=== PATIENT | male | born 1960 | race Caucasian/White ===

== ENCOUNTER 2022-07-19 08:34 | Outpatient (CLI) | payer BC, SELFPAY ==
[2022-07-19 13:31] LABS: Basophils Absolute Auto 0.06 K/uL (0.00-0.30); Basophils Percent Auto 0.9 % (0.0-3.0); Eosinophils Absolute Auto 0.14 K/uL (0.00-0.50); Hematocrit 46.3 % (37.0-53.0); Immature Granulocytes Abs Auto 0.01 K/uL (0.00-0.30); Immature Granulocytes Pct Auto 0.1 %; Lymphocytes Absolute Auto 1.86 K/uL (0.90-2.90); Lymphocytes Percent Auto 27.2 % (20-44); Mean Corpuscular HGB Conc 35 gm/dL (32-36); Mean Corpuscular Hemoglobin 31 pg (26-34); Mean Corpuscular Volume 90 fL (80-100); Monocytes Percent Auto 10.1 % (0.0-11.0); Neutrophils Absolute Auto 4.09 K/uL (1.7-7.0); Neutrophils Percent Auto 59.7 % (42.0-72.0); Platelet Count* 240 K/uL (140-440); Red Blood Count 5.17 m/uL (4.30-5.90); White Blood Count* 6.85 K/uL (4.50-11.00)
[2022-07-19 13:32] LABS: Slide Review Reflex No
[2022-07-19 13:48] LABS: Chloride* 109 mmol/L (96-114); Sodium* 137 mmol/L (135-149)
[2022-07-19 13:49] LABS: Potassium* 4.6 mmol/L (3.6-5.1)
[2022-07-19 13:51] LABS: Bilirubin Total* 0.8 mg/dL (0.1-1.5); Carbon Dioxide* 22 mmol/L (20-32); Creatinine* 0.8 mg/dL (0.5-1.5); Estimated Glomerular Filt Rate 100 ml/min
[2022-07-19 13:52] LABS: Alanine Aminotransferase* 27 U/L (4-50); Alkaline Phosphatase* 71 U/L (40-150); Aspartate Amino Transferase* 34 U/L (12-35); Blood Urea Nitrogen* 9 mg/dL (7-30); Calcium* 9.1 mg/dL (8.4-10.6); Glucose* 123 mg/dL (60-115); Total Protein* 6.5 g/dL (6.0-8.3)
[2022-07-19 13:56] LABS: C Reactive Protein* < 0.5 mg/dL (0.5-1.0)
== END 2022-07-19 08:35 | disposition home or self-care (01) ==
PROVIDERS: PCP Family Medicine; Visit Provider Family Medicine
DX: R10.9 Unspecified abdominal pain (principal); G89.29 Other chronic pain; R19.7 Diarrhea, unspecified; F41.9 Anxiety disorder, unspecified
CPT/HCPCS: 80053; 85025; 86140

== ENCOUNTER 2022-07-22 12:17 | Outpatient (CLI) | payer BC, SELFPAY ==
--- NOTE | 2022-07-22 13:00 | CRLHL7_ITS ---
For Patients: As a result of the Century Cures Act, medical imaging exams and procedure reports are released immediately into your electronic medical record. You may view this report before your referring provider. If you have questions, please contact your health care provider. Indication: CHRONIC ABDOMEN PAIN Technique: Postcontrast CT abdomen and pelvis. Oral water. 53 cc Isovue 370 intravenous contrast. Please note that all CT scans at this facility use dose modulation, iterative reconstruction, and/or weight-based dosing when appropriate to reduce radiation dose to as low as reasonably achievable. Comparison: 07/17/2019, 07/19/2015 Findings: Severe emphysematous changes in both lung bases again noted with bilateral areas of scarring. No pleural effusion. There is no intrahepatic mass. Hepatic steatosis is present. The spleen is normal without splenomegaly or intrasplenic lesion. Normal adrenal glands. Kidneys are within normal limits. No hydronephrosis. Atherosclerotic disease is present. No aortic aneurysm. Normal pancreas. The gallbladder is normal. No adenopathy is present. Prostate calcifications are noted. The bladder is normal. No fracture. Degenerative disc disease L1-2 and L2-3. Similar appearance of the bowel. No mechanical obstruction or acute inflammatory change. Chronic sigmoid wall thickening noted. Impression: Similar appearance of the bowel loops with mild gaseous and fluid distention suggesting chronic ileus, possibly related to chronic sigmoid diverticulosis. No free air or free fluid. No abscess. Hepatic steatosis. Severe emphysema. Please note that all CT scans at this facility use dose modulation, iterative reconstruction, and/or weight-based dosing when appropriate to reduce radiation dose to as low as reasonably achievable. Dictated by Adam Reese MD @ 07/23/2022 8:13:56 AM (Electronically Signed)
== END 2022-07-22 12:18 | disposition home or self-care (01) ==
LOC: CT 12:19
PROVIDERS: PCP Family Medicine; Visit Provider Family Medicine
DX: R10.9 Unspecified abdominal pain (principal); K76.0 Fatty (change of) liver, not elsewhere classified; J43.8 Other emphysema
CPT/HCPCS: 74177; Q9967

== ENCOUNTER 2022-08-16 08:30 | Outpatient (CLI) | payer BC, SELFPAY ==
--- NOTE | 2022-08-16 08:46 | W.ANESCHARGE ---
Anesthesia Charges Start Date/Time Anesthesia Start Date: 08/16/22 Anesthesia Start Time: 09:15 Stop Date/Time Anesthesia Stop Date: 08/16/22 Anesthesia Stop Time: 10:00
--- NOTE | 2022-08-16 13:45 | W.ANESCHARGE ---
Anesthesia Charges Start Date/Time Anesthesia Start Date: 08/16/22 Anesthesia Start Time: 09:15 Stop Date/Time Anesthesia Stop Date: 08/16/22 Anesthesia Stop Time: 10:00
== END 2022-08-16 08:31 | disposition home or self-care (01) ==
LOC: OP CLINIC 08:30
PROVIDERS: PCP Family Medicine; Visit Provider Internal Medicine
DX: Z12.11 Encounter for screening for malignant neoplasm of colon (principal); K63.5 Polyp of colon
CPT/HCPCS: 00811; 45380; 45385; 88305; J2704

== ENCOUNTER 2023-04-19 09:10 | Outpatient (CLI) | payer BC, SELFPAY ==
--- NOTE | 2023-04-19 10:00 | CRLHL7_ITS ---
For Patients: As a result of the Century Cures Act, medical imaging exams and procedure reports are released immediately into your electronic medical record. You may view this report before your referring provider. If you have questions, please contact your health care provider. INDICATION: COPD TECHNIQUE: CT chest, abdomen and pelvis acquired with IV contrast. COMPARISON: 07/17/2019 FINDINGS: CHEST: Cardiovascular structures: Heart size is normal. Thoracic aorta and main pulmonary artery are normal in caliber. Mediastinum and rach: No mass or adenopathy. Lungs and pleura: Compared to the previous exam, stable centrilobular emphysema. Postoperative changes of right upper lobectomy. There are new infiltrates in the left lower lung concerning for pneumonitis. Previously noted small subpleural nodule on the right is not definitely identified on the current exam. Chest wall and axilla: No mass or adenopathy. Bones: No suspicious bone lesions. Unremarkable for age. ABDOMEN AND PELVIS: Liver: No abnormal mass. Stable small wedge-shaped geographic area of low-attenuation involving the left hepatic lobe anteriorly (series 7 image 23) which may represent patchy steatosis. Gallbladder and bile ducts: Unremarkable. Pancreas: No mass or inflammation. Stable slight dilatation of the main pancreatic duct. Spleen: Unremarkable. Adrenal glands: Unremarkable. Kidneys: No hydronephrosis. No renal mass. No ureteral dilatation. GI tract: No obstruction. Colonic diverticulosis without diverticulitis. Multiple loops of normal caliber small bowel colon filled with gas and fluid. Diverticulosis without diverticulitis. Vascular structures: Scattered vascular calcifications. Lymph nodes: No enlarged lymph nodes Miscellaneous: Unremarkable. No free air or significant free fluid. Pelvic Organs: Prostatic calcifications. Bones: No osseous lesions. Degenerative changes in the lumbar spine. IMPRESSION: 1. New infiltrates within the left lower lung concerning for pneumonitis 2. Stable emphysematous changes in both lungs. 3. No adenopathy. Please note that all CT scans at this facility use dose modulation, iterative reconstruction, and/or weight-based dosing when appropriate to reduce radiation dose to as low as reasonably achievable. Dictated by Sergio Nelson MD @ 04/20/2023 4:40:15 PM (Electronically Signed)
== END 2023-04-19 09:11 | disposition home or self-care (01) ==
PROVIDERS: PCP Family Medicine; Visit Provider Family Medicine
DX: J44.9 Chronic obstructive pulmonary disease, unspecified (principal); R10.9 Unspecified abdominal pain
CPT/HCPCS: 71260; 74177; Q9967

== ENCOUNTER 2023-07-06 15:40 | Inpatient (IN) | payer BC, SELFPAY ==
[2023-07-06 15:46] VITALS: BP 96/62; PULSE 109; RESP 18; TEMP 36.7; O2SAT 95
--- NOTE | 2023-07-06 15:59 | ED.SOB ---
HPI - SOB/Dyspnea General Time Seen by Provider: 15:59 Date Seen: 07/06/23 Chief Complaint: Shortness of Breath/Dyspnea Stated Complaint: shortness of breath, congestion, cough Time Seen by Provider: 07/06/23 15:58 Source: patient, RN notes reviewed and old records reviewed Mode of arrival: ambulatory Limitations: no limitations History of Present Illness HPI Narrative: 62-year-old male who presents with shortness of breath. History of COPD and known lung mass. Patient has had breathing difficulty for ?a while? but worse in the last couple of days. Cough productive of clear sputum, no chest pain, no orthopnea, no lower extremity swelling. Denies fever chills. No runny nose or sore throat. Related Data Home Medications Medication Instructions Recorded Confirmed escitalopram oxalate 20 mg tablet 20 mg PO DAILY 03/15/23 07/06/23 albuterol sulfate 2.5 mg/3 mL 2.5 mg continuous nebulization Q6H 04/07/23 07/06/23 (0.083 %) solution for nebulization PRN nebulizer and compressor #1 ea 04/07/23 07/06/23 (InnoSpire Essence device) fluticasone 500 mcg-salmeterol 50 1 ea inhalation BID 06/27/23 07/06/23 mcg/dose blistr powdr for inhalation (Advair Diskus) Previous Rx's Medication Instructions Recorded albuterol sulfate 90 mcg/actuation 2 puff inhalation Q6H PRN 12/12/22 aerosol inhaler shortness of breath or wheezing #8.5 grams fluticasone propionate 50 2 spray intranasal QDAY #16 grams 03/15/23 mcg/actuation nasal spray,suspension (Flonase Allergy Relief) lorazepam 1 mg tablet (Ativan) 1 mg PO BID PRN anxiety #60 tabs 04/10/23 budesonide 0.5 mg/2 mL suspension 0.5 mg (2 mL) inhalation BID #120 06/06/23 for nebulization (Pulmicort) mL ipratropium 0.5 mg-albuterol 3 mg 3 ml inhalation TID #270 mL 06/06/23 (2.5 mg base)/3 mL nebulization soln omeprazole 20 mg capsule,delayed 20 mg PO QDAY #30 caps 06/06/23 release prednisone 10 mg tablet 10 mg PO QDAY #30 tabs 06/23/23 fluconazole 100 mg tablet 100 mg PO QDAY #14 tabs 06/28/23 nystatin 100,000 unit/mL oral 5 ml PO TID #473 mL 06/28/23 suspension Allergies Allergy/AdvReac Type Severity Reaction Status Date / Time No Known Drug Allergies Allergy Verified 07/06/23 17:35 [facility] Medical History (Updated 07/06/23 @ 19:44 by Griffin Lewis MD) LLL pneumonia ?J18.9 - Pneumonia, unspecified organism (ICD-10) Allergic rhinitis ?J30.9 - Allergic rhinitis, unspecified (ICD-10) Chronic constipation ?K59.09 - Other constipation (ICD-10) Tubular adenoma of colon (02/28/15) ?D12.6 - Benign neoplasm of colon, unspecified (ICD-10) Tobacco abuse ?Z72.0 - Tobacco use (ICD-10) Spondylosis of lumbar spine ?M47.816 - Spondylosis without myelopathy or radiculopathy, lumbar region (ICD-10) Recurrent major depressive disorder ?F33.9 - Major depressive disorder, recurrent, unspecified (ICD-10) History of substance abuse ?F19.11 - Other psychoactive substance abuse, in remission (ICD-10) Generalized anxiety disorder ?F41.1 - Generalized anxiety disorder (ICD-10) Gastroesophageal reflux disease ?K21.9 - Gastro-esophageal reflux disease without esophagitis (ICD-10) Chronic pain of both knees ?M25.561 - Pain in right knee (ICD-10) ?M25.562 - Pain in left knee (ICD-10) ?G89.29 - Other chronic pain (ICD-10) Chronic abdominal pain ?R10.9 - Unspecified abdominal pain (ICD-10) ?G89.29 - Other chronic pain (ICD-10) Cannabis abuse (06/06/16) ?F12.10 - Cannabis abuse, uncomplicated (ICD-10) COPD (chronic obstructive pulmonary disease) ?J44.9 - Chronic obstructive pulmonary disease, unspecified (ICD-10) Surgical History (Updated 07/14/22 @ 12:41 by Jocy Chong ~ [facility]) 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) ?Z90.2 - Acquired absence of lung [part of] (ICD-10) History of hand surgery ?Z98.890 - Other specified postprocedural states (ICD-10) Social History (Updated 06/06/23 @ 11:13 by Cynthia Rodgers ~ [facility]) Narrative: Alcohol abuse , 3 kids [employer], smoker What is your current living situation?: I have a place to live at present, but am concerned about future Problems where you live: carbon monoxide detectors missing or not working In the past 12 months, utilities in danger of being shut off: unable to answer In past 12 months, lack of transportation kept you from medical appts, meetings, work, or getting things needed for daily living: no In the past 12 mos, have been you worried that your food would run out before you had money to buy more?: often true In the past 12 mos, the food you bought just didn't last and you didn't have money to buy more?: sometimes true Smoking Status: Current every day smoker What tobacco products do you use: cigarettes Non-prescribed substance use: denies use How often does anyone, including family, friends and others, physically hurt you: never How often does anyone, including family, friends and others, insult or talk down to you: rarely How often does anyone, including family, friends and others, threaten you with harm: never How often does anyone, including family, friends and others, scream or curse at you: never Little interest or pleasure in doing things: nearly every day Feeling down, depressed, or hopeless: nearly every day Exam Narrative: Exam Narrative: General: Well-developed and well-nourished, mild respiratory distress Head: Atraumatic and normocephalic Eyes: Pupils are equal reactive, extraocular motions intact, conjunctiva clear ENT: External nose and ears are normal, posterior pharynx without erythema or exudate Neck: No midline cervical tenderness, full spontaneous range of motion the neck, trachea midline, no adenopathy Heart: Tachycardic rate and regular rhythm no murmurs or thrills Lungs: Coarse wheezes bilaterally with transmitted upper airway sound Abdomen: Soft, nontender, nondistended with active bowel sounds Musculoskeletal: No tenderness, deformity, or edema Neurologic: Awake, alert, and oriented x3, no gross focal neurologic deficits, cranial nerves intact as tested Psych: Mood and affect are appropriate Skin: No rashes Const: Vital Signs, click to edit/add: Vital Signs - 24 hr 07/06/23 15:46 Temperature 98.0 F Pulse Rate [Right Pulse Oximeter] 109 H Respiratory Rate 18 Blood Pressure [Ri ght Upper Arm] 96/62 Pulse Oximetry 95 Oxygen Delivery Me thod Room Air Course Course ED Course: Patient seen and examined, prior records reviewed. Patient presents today with shortness of breath. History of COPD in no lung mask, tachycardic with audible wheezes and stridor on exam. Voice is not hoarse although patient says he has noted some voice changes. With long history of smoking, concern for upper airway mass, known lung mass. Pulmonary embolism also possible but would obviously not cause upper airway sounds. Albuterol nebulizer treatment as well as stored order. If fiberoptic scope is available will attempt nasolaryngoscopy to visualize vocal cords. CT scan of the neck and chest ordered. Patient continues to smoke cigarettes, history of COPD, concern with medication noncompliance. Reevaluation(s) Time of Reevaluation #1: 17:11 Reevaluation #1: Labs independently interpreted by me with normal CBC, normal basic metabolic panel other than slightly low bicarbonate, venous blood gas slightly elevated with low pCO2 consistent with hyperventilation related to patient's increased respiratory rate, magnesium normal, BNP normal. CT pending. [facility] does not have a fiberoptic laryngoscopy equipment for use, will wait for CT results. Time of Reevaluation #2: 17:44 Reevaluation #2: CT of the chest independently interpreted by me demonstrates marked emphysematous changes and elevated right hemidiaphragm, no pulmonary embolism, left lower lobe mass is almost completely consolidated, this may represent postobstructive atelectasis and consolidation from previously seen lung mass. 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 Time of Reevaluation #3: 18:21 Reevaluation #3: Care discussed with Dr. Vazquez, feels the patient will need to be seen to have this mass biopsy but most likely needs to be at [place] or another tertiary center. At this time based on CT scan and clinical exam, there is no acute or impending airway obstruction and this patient is COVID positive, biopsy may need to wait until he has recovered. Does recommend that if patient is admitted, he can undergo laryngoscopy tomorrow at [facility]. Additional Reevaluation(s): 7:01 p.m. updated patient with findings and plan. Patient would like to go home if possible. Patient with mild tachycardia which is been seen and prior clinic visits, blood pressure is approximately stable for the patient. Oxygen saturation greater than 95% throughout his emergency department visit after DuoNeb appears more comfortable. CT scan of the chest still is not been read, did contact [facility] and there be significant delay in reads, updated patient with delay. 7:29 p.m. care discussed with Dr. Mccord in the emergency department for admission. 7:[address] report from Radiology which does confirm left hilar mass with a bronchial obstruction and atelectasis and consolidation of the left lower lobe. Vital Signs Vital signs: Initial Vital Signs Temperature 98.0 F 07/06/23 15:46 Temperature Source Temporal Artery Scan 07/06/23 15:46 Pulse Rate 109 H 07/06/23 15:46 Respiratory Rate 18 07/06/23 15:46 Blood Pressure 96/62 07/06/23 15:46 Blood Pressure Mean 73 07/06/23 15:46 Blood Pressure Position Sitting 07/06/23 15:46 Pulse Oximetry 95 07/06/23 15:46 Oxygen Delivery Method Room Air 07/06/23 15:46 Vital Signs Temperature 98.0 F 07/06/23 15:46 Pulse Rate 109 H 07/06/23 15:46 Respiratory Rate 18 07/06/23 15:46 Blood Pressure 96/62 07/06/23 15:46 Pulse Oximetry 95 07/06/23 15:46 Oxygen Delivery Method Room Air 07/06/23 15:46 Temperature 98.0 F 07/06/23 15:46 Pulse Rate 109 H 07/06/23 15:46 Respiratory Rate 18 07/06/23 15:46 Blood Pressure 96/62 07/06/23 15:46 Pulse Oximetry 95 07/06/23 15:46 Oxygen Delivery Method Room Air 07/06/23 15:46 Medications Administered Medications: Generic Name Dose Route Start Last Admin Trade Name Freq PRN Reason Stop Dose Admin Nicotine 1 patch 07/06/23 19:30 07/06/23 19:43 Nicotine 21 Mg Patch TRANSDERMA 1 patch Q24H ALEJANDRO Administration Discontinued Medications Generic Name Dose Route Start Last Admin Trade Name Freq PRN Reason Stop Dose Admin Albuterol/Ipratropium 1 neb 07/06/23 17:53 07/06/23 18:08 Iprat-Albut 0.5-2.5 Mg/3 Ml Neb IH 07/06/23 17:54 1 neb ONCE ONE Administration Dexamethasone 10 mg 07/06/23 16:14 07/06/23 17:12 Dexamethasone 10 Mg/Ml Inj IVP 07/06/23 16:15 10 mg ONCE ONE Administration Sodium Chloride 1,000 mls @ 1,000 mls/hr 07/06/23 16:30 07/06/23 18:08 0.9 % Sodium Chloride 1000 Ml IV 07/06/23 17:29 Infused .Q1H ALEJANDRO Infusion MDM - SOB/Dyspnea Lab Data Labs: Lab Results 07/06/23 Range/Units 16:29 WBC 9.66 (4.50-11.00) K/uL RBC 4.70 (4.30-5.90) m/uL Hgb 14.2 (13.5-17.5) gm/dL Hct 42.2 (37.0-53.0) % MCV 90 (80-100) fL MCH 30 (26-34) pg MCHC 34 (32-36) gm/dL RDW Coeff of Dylan 13.6 (11.5-15.5) % Plt Count 421 (140-440) K/uL Neut % (Auto) 73.3 H (42.0-72.0) % Lymph % (Auto) 16.6 L (20-44) % Marinette % (Auto) 7.8 (0.0-11.0) % Eos % (Auto) 1.0 (0.0-7.0) % Baso % (Auto) 0.4 (0.0-3.0) % Neut # (Auto) 7.10 H (1.7-7.0) K/uL Lymph # (Auto) 1.60 (0.90-2.90) K/uL Marinette # (Auto) 0.80 (0.00-0.90) K/UL Eos # (Auto) 0.10 (0.00-0.50) K/uL Baso # (Auto) 0.04 (0.00-0.30) K/uL Abs Immat Gran (auto) 0.09 (0.00-0.30) K/uL Imm/Tot Granulo (auto) 0.9 % VBG pH 7.432 H (7.32-7.43) VBG pCO2 31 L (40-50) mmHG VBG pO2 56.9 H (25-47) mmHG VBG HCO3 21 (21-28) mmol/L Sodium 137 (135-149) mmol/L Potassium 4.5 (3.6-5.1) mmol/L Chloride 108 (96-114) mmol/L Carbon Dioxide 18 L (20-32) mmol/L Anion Gap 11 (7-15) mEq/L BUN 13 (7-30) mg/dL Creatinine 0.6 (0.5-1.5) mg/dL Estimated GFR 108 ml/min Glucose 96 (60-115) mg/dL Calcium 8.6 (8.4-10.6) mg/dL Magnesium 2.0 (1.5-2.6) mg/dL NT-Pro-B Natriuret Pep 38 pg/mL SARS-CoV-2 (PCR) POSITIVE SARS-CoV-2 A (Negative) Influenza Type A (PCR) Negative PCR FLU A (Negative) Influenza Type B (PCR) Negative PCR FLU B (Negative) RSV (PCR) Negative PCR RSV (Negative) Discharge Plan Discharge Clinical Impression: Tobacco abuse, COPD (chronic obstructive pulmonary disease), COVID-19, Supraglottic mass, Mass of left lung Patient Disposition: Admitted As Observation
--- NOTE | 2023-07-06 16:10 | CRLHL7_ITS ---
For Patients: As a result of the Century Cures Act, medical imaging exams and procedure reports are released immediately into your electronic medical record. You may view this report before your referring provider. If you have questions, please contact your health care provider. INDICATION: Dyspnea. TECHNIQUE: CT of the neck soft tissues performed with IV contrast. Contrast: 95 cc Isovue 370. COMPARISON: None available at this institution. FINDINGS: There is effacement of the right piriform sinus. Suggestion of a submucosal lesion in the right false cord/supraglottic region measuring up to 1.2 x 1.6 cm (TR X AP) (series 3, image 57). The nasopharynx, oropharynx and hypopharynx appear unremarkable. The parotid and submandibular glands appear unremarkable. The thyroid gland is normal. There is a 1.8 cm central hypodense lymph node noted right supraclavicular/level 5. Scattered atherosclerotic disease. The visualized intracranial components appear grossly intact. Visualized orbits and contents appear unremarkable. The paranasal sinuses are clear as visualized. Severe emphysema. IMPRESSION: 1. Suggestion of a submucosal lesion within the right supraglottic larynx/false cord region. Effacement of the right piriform sinus. Direct visualization is recommended. 2. Right supraclavicular/level 5 enlarged lymph node with central hypodensity worrisome for necrosis. This could represent a metastatic lymph node. Tissue sampling recommended if a primary source is not identified. Please note that all CT scans at this facility use dose modulation, iterative reconstruction, and/or weight-based dosing when appropriate to reduce radiation dose to as low as reasonably achievable. Dictated by Mick Acuna MD @ 07/06/2023 6:14:10 PM (Electronically Signed)
--- NOTE | 2023-07-06 16:10 | CRLHL7_ITS ---
For Patients: As a result of the Century Cures Act, medical imaging exams and procedure reports are released immediately into your electronic medical record. You may view this report before your referring provider. If you have questions, please contact your health care provider. Indication: Dyspnea, known malignancy, history of right-sided lung symptoms Technique: Volumetric multidetector CT images of the chest were obtained after the administration of IV contrast. 95 cc Isovue 370 low osmolar intravenous contrast Comparison: CT chest abdomen and pelvis April 19, 2023 Findings: The thoracic inlet and thyroid gland are unremarkable. The thoracic aorta is nonaneurysmal. There is no central filling defect to suggest pulmonary embolism. There are enlarged mediastinal and hilar lymph nodes as well as subcarinal lymph nodes similar to previous exam. There is demonstration of marked bronchial thickening and opacification of the left lower lobe subsegmental bronchi. There is mild upper lobe central bronchial thickening. There is moderate to severe centrilobular and paraseptal emphysematous change. There is interval development of left basilar atelectasis and consolidation with likely obstructing endobronchial lesion at the left hilum measuring 3.3 x 2.4 centimeters. There is no evidence of pulmonary mass or suspicious pulmonary nodule. The partially visualized upper abdomen demonstrates moderate stool within the colon. The thoracic vertebral body heights are grossly maintained with straightening of the normal thoracic kyphosis. There is no significant spondylolisthesis or displaced fracture. Impression: Moderate to severe emphysematous changes of the bilateral hemithoraces with demonstration of likely left inferior hilar mass and/or endobronchial obstructing lesion measuring 2.4 x 3.3 centimeters with moderate atelectasis and consolidation in the peripheral left lower lobe. There are enlarged mediastinal and hilar lymph nodes again seen. No evidence of pulmonary embolus. Please note that all CT scans at this facility use dose modulation, iterative reconstruction, and/or weight-based dosing when appropriate to reduce radiation dose to as low as reasonably achievable. Dictated by Laz Morales MD @ 07/06/2023 7:42:54 PM (Electronically Signed)
[2023-07-06 16:36] LABS: HCO3 VBG 21 mmol/L (21-28); PCO2 VBG 31 mmHG (40-50); PO2 VBG 56.9 mmHG (25-47); pH VBG 7.432 (7.32-7.43)
[2023-07-06 16:37] LABS: Basophils Absolute Auto 0.04 K/uL (0.00-0.30); Basophils Percent Auto 0.4 % (0.0-3.0); Hematocrit 42.2 % (37.0-53.0); Hemoglobin* 14.2 gm/dL (13.5-17.5); Immature Granulocytes Abs Auto 0.09 K/uL (0.00-0.30); Immature Granulocytes Pct Auto 0.9 %; Lymphocytes Percent Auto 16.6 % (20-44); Mean Corpuscular HGB Conc 34 gm/dL (32-36); Mean Corpuscular Hemoglobin 30 pg (26-34); Mean Corpuscular Volume 90 fL (80-100); Monocytes Percent Auto 7.8 % (0.0-11.0); Neutrophils Percent Auto 73.3 % (42.0-72.0); Platelet Count* 421 K/uL (140-440); RDW Coefficient of Variation % 13.6 % (11.5-15.5); White Blood Count* 9.66 K/uL (4.50-11.00)
[2023-07-06 16:41] LABS: Slide Review Reflex No
[2023-07-06 16:55] LABS: Chloride* 108 mmol/L (96-114); Potassium* 4.5 mmol/L (3.6-5.1); Sodium* 137 mmol/L (135-149)
[2023-07-06 16:57] LABS: Creatinine* 0.6 mg/dL (0.5-1.5); Estimated Glomerular Filt Rate 108 ml/min
[2023-07-06 16:58] LABS: Anion Gap 11 mEq/L (7-15); Blood Urea Nitrogen* 13 mg/dL (7-30); Calcium* 8.6 mg/dL (8.4-10.6); Carbon Dioxide* 18 mmol/L (20-32); Glucose* 96 mg/dL (60-115)
[2023-07-06 17:08] LABS: NT Pro B Type NatriureticPept* 38 pg/mL
[2023-07-06] MEDS: 0.9 % SODIUM CHLORIDE 1000 ml 1,000 ML IV (17:12)
[2023-07-06] MEDS: dexAMETHasone 10 MG/ML inj IVP (17:12)
[2023-07-06 17:15] LABS: PCR FLU A Negative PCR FLU A (Negative); PCR FLU B Negative PCR FLU B (Negative); PCR RSV Negative PCR RSV (Negative); SARS PCR* POSITIVE SARS-CoV-2 (Negative)
[2023-07-06] MEDS: IPRAT-ALBUT 0.5-2.5 MG/3 ML NEB 1 NEB IH (18:08)
--- NOTE | 2023-07-06 19:40 | P.IMHP_ITS ---
Hospitalist- H&P: HPI History of Present Illness Date Seen: 07/06/23 Chief complaint: shortness of breath, congestion, cough Narrative: Kodak Jenkins is a 62 year old male with known COPD who presented to the ER this evening with acute on chronic dyspnea, in addition to cough. Has noted symptoms for months, worse in the past few days. Cough present intermittently, no sputum or hemoptysis. Known L lung mass, has PET scan scheduled on 07/20/23. ER Course and Findings: - intermittent tachycardia and tachypnea - weakness associated with dyspnea and coughing paroxysms - + COVID - CTA chest: negative PE, moderate to severe emphysematous change, concern for obstructing endobronchial lesion at L hilum - CT soft tissue neck: concern for submucosal lesion in R supraglottic larynx, R supraclavicular lymph node Dr. Vazquez of ENT aware and plans to see patient for direct visualization of supraglottic lesion. Sister Natacha present for H&P, assisted in adding history. Drinks 5-10 beers/day, last ETOH 11:30am 07/06. Daily smoker. Histories updated below. Dr. Curiel is PCP locally. Review of Systems Narrative: - no GI symptoms - no symptoms - no skin concerns - daily smoker, daily ETOH use. No history of severe withdrawal, but worried about this. Nicotine patch placed in ED [facility] Medical History (Updated 07/06/23 @ 20:47 by Ayanna Mccord MD) LLL pneumonia ?J18.9 - Pneumonia, unspecified organism (ICD-10) Allergic rhinitis ?J30.9 - Allergic rhinitis, unspecified (ICD-10) Chronic constipation ?K59.09 - Other constipation (ICD-10) Tubular adenoma of colon (02/28/15) ?D12.6 - Benign neoplasm of colon, unspecified (ICD-10) Tobacco abuse ?Z72.0 - Tobacco use (ICD-10) Spondylosis of lumbar spine ?M47.816 - Spondylosis without myelopathy or radiculopathy, lumbar region (ICD-10) Recurrent major depressive disorder ?F33.9 - Major depressive disorder, recurrent, unspecified (ICD-10) History of substance abuse ?F19.11 - Other psychoactive substance abuse, in remission (ICD-10) Generalized anxiety disorder ?F41.1 - Generalized anxiety disorder (ICD-10) Gastroesophageal reflux disease ?K21.9 - Gastro-esophageal reflux disease without esophagitis (ICD-10) Chronic pain of both knees ?M25.561 - Pain in right knee (ICD-10) ?M25.562 - Pain in left knee (ICD-10) ?G89.29 - Other chronic pain (ICD-10) Chronic abdominal pain ?R10.9 - Unspecified abdominal pain (ICD-10) ?G89.29 - Other chronic pain (ICD-10) Cannabis abuse (06/06/16) ?F12.10 - Cannabis abuse, uncomplicated (ICD-10) COPD (chronic obstructive pulmonary disease) ?J44.9 - Chronic obstructive pulmonary disease, unspecified (ICD-10) Surgical History (Updated 07/14/22 @ 12:41 by Jocy Chong ~ PSR) 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 , 3 adult children. Daily ETOH, smoker. Sister Natacha would be primary medical decision maker if needed (could share duties with 2 other sisters). Bill currently requests Full Code status, will be discussing goals of care further with PCP after 07/20/23 PET scan. What is your current living situation?: I have a place to live at present, but am concerned about future Problems where you live: carbon monoxide detectors missing or not working In the past 12 months, utilities in danger of being shut off: unable to answer In past 12 months, lack of transportation kept you from medical appts, meetings, work, or getting things needed for daily living: no In the past 12 mos, have been you worried that your food would run out before yo u had money to buy more?: often true In the past 12 mos, the food you bought just didn't last and you didn't have money to buy more?: sometimes true Smoking Status: Current every day smoker What tobacco products do you use: cigarettes Non-prescribed substance use: denies use How often does anyone, including family, friends and others, physically hurt you : never How often does anyone, including family, friends and others, insult or talk down to you: rarely How often does anyone, including family, friends and others, threaten you with harm: never How often does anyone, including family, friends and others, scream or curse at you: never Little interest or pleasure in doing things: nearly every day Feeling down, depressed, or hopeless: nearly every day Meds Home Medications and Allergies Home Medications Medication Instructions Recorded Confirmed Type escitalopram oxalate 20 mg tablet 20 mg PO DAILY 03/15/23 07/06/23 History albuterol sulfate 2.5 mg/3 mL 2.5 mg continuous nebulization Q6H 04/07/23 07/06/23 History (0.083 %) solution for nebulization PRN nebulizer and compressor #1 ea 04/07/23 07/06/23 History (InnoSpire Essence device) fluticasone 500 mcg-salmeterol 50 1 ea inhalation BID 06/27/23 07/06/23 History mcg/dose blistr powdr for inhalation (Advair Diskus) Home Medication Comments: - also on 10mg of Prednisone daily Allergies Allergy/AdvReac Type Severity Reaction Status Date / Time No Known Drug Allergies Allergy Verified 07/06/23 17:35 Exam Narrative: Exam Narrative: GEN: Alert and oriented, sitting on edge of bed with intermittent coughing paroxysms and tachypnea, cachectic HEENT: EOMIs bilaterally, no scleral icterus, oropharynx not evaluated (patient wearing mask), CV: Sinus tachycardia, no concerning murmurs noted but heart sounds distant R: Decreased lung sounds throughout, no significant wheezing Ext: thin, + clubbing, wwp, no concerning edema Skin: Scattered excoriations on UEs from scratching, no concerning lesions or jaundice Neuro: Nonfocal Psych: Anxiety evident, redirectable Const: Vital Signs, click to edit/add: Vital Signs - 24 hr 07/06/23 15:46 Temperature 98.0 F Pulse Rate [Right Pulse Oximeter] 109 H Respiratory Rate 18 Blood Pressure [Ri ght Upper Arm] 96/62 Pulse Oximetry 95 Oxygen Delivery Me thod Room Air Hospitalist - H&P: Result Labs Labs: Short CBC 07/06/23 Range/Units 16:29 WBC 9.66 (4.50-11.00) K/uL Hgb 14.2 (13.5-17.5) gm/dL Hct 42.2 (37.0-53.0) % Plt Count 421 (140-440) K/uL BMP 07/06/23 16:29 Sodium 137 Potassium 4.5 Chloride 108 Carbon Dioxide 18 L BUN 13 Creatinine 0.6 Glucose 96 Calcium 8.6 Assessment and Plan Assessment and plan (1) COVID-19: Problem comment: - high risk for complications given COPD and comorbidities - will treat with 3 day course of Remdesivir - given concern for concomitant COPD exacerbation, will also add nebs, steroids - supplemental oxygen if needed Status: Acute (2) Mass of left lung: Problem comment: - known, has PET scan scheduled 07/20/23 Status: Acute (3) Supraglottic mass: Problem comment: - noted on 07/06/23 CT. ENT ([facility]) aware, plans to see 07/07 Status: Acute (4) Generalized anxiety disorder: Problem comment: - chronic, continue home doses of Lexapro, prn Ativan Status: Acute (5) Tobacco abuse: Problem comment: - patch placed 07/06 Status: Acute (6) Alcohol use: Problem comment: - Phenobarbital x1 on 07/06, on CIWA Status: Acute Plan - per above - Lovenox for ppx - at this time, patient requesting Full Code status, but would not want to be kept mechanically alive for any extended period of time. He plans to re-address code status with PCP after his 07/20/23 PET scan
[2023-07-06] MEDS: NICOTINE 21 MG PATCH 1 PATCH TRANSDERMA (19:43)
[2023-07-06 20:24] VITALS: BP 143/95; PULSE 88; RESP 24; TEMP 36.4; O2SAT 96
[2023-07-06 21:55] VITALS: BP 143/95; PULSE 88; RESP 24; TEMP 36.4; O2SAT 96; O2SAT 97; BMI 18.7
[2023-07-06 23:00] VITALS: BP 121/73; PULSE 86; PULSE 88; RESP 28; TEMP 36.6; O2SAT 94
[2023-07-06] MEDS: PHENobarbitaL 260 MG in 0.9 % SODIUM CHLORIDE 100 ml 100 ML 208 MG IVPB (23:22)
[2023-07-06] MEDS: LORazepam 0.5 MG TABLET 1 MG PO (23:23)
[2023-07-06] MEDS: SODIUM CHLORIDE 0.9 % (FLUSH) 10 ML SYRINGE 5 ML IVF (23:24)
[2023-07-06] MEDS: OMEPRAZOLE 20 MG CAPSULE DR PO (23:24)
[2023-07-07] VITALS (11 sets, daily range): BP systolic 110–144; BP diastolic 70–93; PULSE 74–107; RESP 18–26; TEMP 36.4–37.1; O2SAT 93–97
--- NOTE | 2023-07-07 00:47 | PC.NURSE ---
End of care : Pt arrived to med/surg floor around 1999. VSS, afebrile and ambulatory. A&O x4 and makes his needs known. Independent in his room. Pt has dry, barky cough no sputum production. Reports having dizziness with ambulation and was encouraged to utilize call light if he does not feel safe ambulating independently. PIV in right AC infusing phenobarbital for ETOH withdrawals and then remdesivir for COVID treatment. Pt denies any nausea but reports having a headache. CIWA score positive for mild headache and anxiety; x1 dose PRN ativan given per pt request. Nicotine patch in place on posterior left shoulder. Pt expressed to nurse that he has h/o suicidal ideations. He has had a plan to shoot himself for some time now but reports he does not own any guns nor would he want to do that to his family. Pt reports he uses THC daily which helps him keep a sane mind. Pt also reports he has anywhere between 5-10 alcoholic beverages a day, between beer and vodka. He is currently a 1 PPD smoker. aware of this information and no new orders provided for overnight. CIWA's in place.
--- NOTE | 2023-07-07 05:55 | PC.NURSE ---
[id number] Pt slept during night, sweating and feels hot/cold, afebrile and pt reports that he sweats a lot at baseline. maintaining O2 sats on RA, mid to upper 90's. IND in room, voiding and tolerating intake. CIWA protocol in place, medication prn.
[2023-07-07 07:08] LABS: HCO3 VBG 27 mmol/L (21-28); PCO2 VBG 46 mmHG (40-50); PO2 VBG 25.9 mmHG (25-47); pH VBG 7.381 (7.32-7.43)
[2023-07-07 07:12] LABS: Basophils Absolute Auto 0.01 K/uL (0.00-0.30); Basophils Percent Auto 0.2 % (0.0-3.0); Hematocrit 44.2 % (37.0-53.0); Hemoglobin* 14.7 gm/dL (13.5-17.5); Immature Granulocytes Abs Auto 0.01 K/uL (0.00-0.30); Immature Granulocytes Pct Auto 0.2 %; Lymphocytes Percent Auto 16.4 % (20-44); Mean Corpuscular HGB Conc 33 gm/dL (32-36); Mean Corpuscular Hemoglobin 30 pg (26-34); Mean Corpuscular Volume 90 fL (80-100); Monocytes Percent Auto 2.7 % (0.0-11.0); Neutrophils Percent Auto 80.5 % (42.0-72.0); Platelet Count* 412 K/uL (140-440); RDW Coefficient of Variation % 13.5 % (11.5-15.5); White Blood Count* 5.92 K/uL (4.50-11.00)
[2023-07-07 07:14] LABS: Slide Review Reflex No
[2023-07-07 07:33] LABS: Chloride* 103 mmol/L (96-114); Potassium* 4.6 mmol/L (3.6-5.1); Sodium* 137 mmol/L (135-149)
[2023-07-07 07:36] LABS: Anion Gap 8 mEq/L (7-15); Blood Urea Nitrogen* 13 mg/dL (7-30); Carbon Dioxide* 26 mmol/L (20-32); Glucose* 122 mg/dL (60-115)
[2023-07-07 07:37] LABS: Calcium* 8.9 mg/dL (8.4-10.6)
[2023-07-07 07:47] LABS: Creatinine* 0.6 mg/dL (0.5-1.5); Est. Creatinine Clearance* 56.13; Estimated Glomerular Filt Rate 108 ml/min
[2023-07-07] MEDS: predniSONE 20 MG TABLET 60 MG PO (08:34)
[2023-07-07] MEDS: FOLIC ACID 1 MG TABLET PO (08:34)
[2023-07-07] MEDS: ESCITALOPRAM 10 MG TABLET 20 MG PO (08:34)
[2023-07-07] MEDS: THIAMINE 100 MG TABLET PO (08:34)
[2023-07-07] MEDS: SODIUM CHLORIDE 0.9 % (FLUSH) 10 ML SYRINGE 5 ML IVF ×2 (08:35→20:45)
[2023-07-07] MEDS: OMEPRAZOLE 20 MG CAPSULE DR PO (08:35)
[2023-07-07] MEDS: LORazepam 0.5 MG TABLET 1 MG PO ×2 (11:32→16:51)
[2023-07-07] MEDS: PHENobarbitaL 32.4 MG TABLET 162 MG PO ×2 (11:33→20:38)
--- NOTE | 2023-07-07 11:55 | P.ENTCN_ITS ---
HPI- ENT Consult Date of Consult Date Seen: 07/07/23 Consult date: 07/07/23 Requesting Physician: Other Primary Care Provider: Adam Curiel MD Consult Narrative Reason for consult: Mass noted on CT scan right hypopharynx laryngeal region. Narrative: Kodak Jenkins is a 62 year old male smoker and drinker was currently in the process of being worked up for a lung mass. He was admitted last night through the ER with shortness of breath and COVID. No upper airway issues however. CT soft tissue neck revealed a submucosal mass above the right false cord abutting the piriform sinus. There is a right supraclavicular node or mass also. He does note a fullness in his throat but no true dysphagia odynophagia hot cold citrus intolerance or otalgia. [facility] Medical History (Updated 07/06/23 @ 20:47 by Ayanan Mccord MD) LLL pneumonia ?J18.9 - Pneumonia, unspecified organism (ICD-10) Allergic rhinitis ?J30.9 - Allergic rhinitis, unspecified (ICD-10) Chronic constipation ?K59.09 - Other constipation (ICD-10) Tubular adenoma of colon (02/28/15) ?D12.6 - Benign neoplasm of colon, unspecified (ICD-10) Tobacco abuse ?Z72.0 - Tobacco use (ICD-10) Spondylosis of lumbar spine ?M47.816 - Spondylosis without myelopathy or radiculopathy, lumbar region (ICD-10) Recurrent major depressive disorder ?F33.9 - Major depressive disorder, recurrent, unspecified (ICD-10) History of substance abuse ?F19.11 - Other psychoactive substance abuse, in remission (ICD-10) Generalized anxiety disorder ?F41.1 - Generalized anxiety disorder (ICD-10) Gastroesophageal reflux disease ?K21.9 - Gastro-esophageal reflux disease without esophagitis (ICD-10) Chronic pain of both knees ?M25.561 - Pain in right knee (ICD-10) ?M25.562 - Pain in left knee (ICD-10) ?G89.29 - Other chronic pain (ICD-10) Chronic abdominal pain ?R10.9 - Unspecified abdominal pain (ICD-10) ?G89.29 - Other chronic pain (ICD-10) Cannabis abuse (06/06/16) ?F12.10 - Cannabis abuse, uncomplicated (ICD-10) COPD (chronic obstructive pulmonary disease) ?J44.9 - Chronic obstructive pulmonary disease, unspecified (ICD-10) Surgical History (Updated 07/14/22 @ 12:41 by Jocy Chong ~ PSR) 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 , 3 adult children. Daily ETOH, smoker. Sister Natacha would be primary medical decision maker if needed (could share duties with 2 other sisters). Bill currently requests Full Code status, will be discussing goals of care further with PCP after 07/20/23 PET scan. What is your current living situation?: I presently have a place to live Problems where you live: no known problems Problems where you live details: no problems In the past 12 months, utilities in danger of being shut off: no In past 12 months, lack of transportation kept you from medical appts, meetings, work, or getting things needed for daily living: no In the past 12 mos, have been you worried that your food would run out before you had money to buy more?: never true In the past 12 mos, the food you bought just didn't last and you didn't have money to buy more?: never true Highest level of school completed/degree received: high school graduate Smoking Status: Current every day smoker What tobacco products do you use: cigarettes Smoking packs per day: 1 Smoking cigarettes per day: 20.0 Years sm oked: 20 Smoking pack-years: 20.00 Do you use any of these nicotine containing products: None Second hand tobacco smoke exposure: No How often do you have a drink containing alcohol: 4 or more times a week Alcohol type: beer and hard liquor Alcohol type details: beer or vodka daily. last drink 07/06 at 1130 am How many standard drinks containing alcohol do you have on a typical day: 5 or 6 How often do you have six or more drinks on one occasion: Daily or almost daily AUDIT-C Alcohol total score: 10 Non-prescribed substance use: marijuana (any form) Non-prescribed substance use details: daily THC use Caffeine: Yes (daily mtn dew) How often does anyone, including family, friends and others, physically hurt you : never How often does anyone, including family, friends and others, insult or talk down to you: never How often does anyone, including family, friends and others, threaten you with harm: never How often does anyone, including family, friends and others, scream or curse at you: never Little interest or pleasure in doing things: nearly every day Feeling down, depressed, or hopeless: nearly every day service: No Meds Home Medications and Allergies Home Medications Medication Instructions Recorded Confirmed Type escitalopram oxalate 20 mg tablet 20 mg PO DAILY 03/15/23 07/06/23 History albuterol sulfate 2.5 mg/3 mL 2.5 mg continuous nebulization Q6H 04/07/23 07/06/23 History (0.083 %) solution for nebulization PRN nebulizer and compressor #1 ea 04/07/23 07/06/23 History (InnoSpire Essence device) fluticasone 500 mcg-salmeterol 50 1 ea inhalation BID 06/27/23 07/06/23 History mcg/dose blistr powdr for inhalation (Advair Diskus) Allergies Allergy/AdvReac Type Severity Reaction Status Date / Time No Known Drug Allergies Allergy Verified 07/06/23 17:35 Exam Narrative: Exam Narrative: General skin neuro respiratory gait peripheral vascular vocal quality skin of head neck are all negative except no upper neck masses, see procedure note for laryngeal exam Procedure note after informed consent was obtained the flexible scope was passed through the left nostril hypopharynx larynx examined. There is indeed a submucosal mass on the right side of the larynx in the supraglottic region. This has the gross appearance of a mucous retention cyst. Cords move normally. Const: Vital Signs, click to edit/add: Vital Signs - 24 hr 07/06/23 15:46 07/06/23 20:24 07/06/23 21:55 Temperature 98.0 F 97.5 F L 97.5 F L Pulse Rate [Pulse Oximeter] 88 88 Pulse Rate [Right Pulse Oximeter] 109 H Respiratory Rate 18 24 24 Blood Pressure [Le ft Arm] 143/95 H 143/95 H Blood Pressure [Ri ght Upper Arm] 96/62 Pulse Oximetry 95 96 96 Oxygen Delivery Me thod Room Air Room Air Room Air 07/06/23 21:55 07/06/23 23:00 07/06/23 23:00 Temperature Pulse Rate [Pulse Oximeter] 88 Pulse Rate [Right Pulse Oximeter] Respiratory Rate 24 28 H 28 H Blood Pressure [Le ft Arm] Blood Pressure [Ri ght Upper Arm] Pulse Oximetry 97 94 Oxygen Delivery Me thod Room Air Room Air 07/06/23 23:00 07/07/23 00:00 07/07/23 03:00 Temperature 97.8 F 98.8 F 97.8 F Pulse Rate [Pulse Oximeter] 86 86 76 Pulse Rate [Right Pulse Oximeter] Respiratory Rate 28 H 26 H 26 H Blood Pressure [Le ft Arm] 121/73 121/73 128/80 Blood Pressure [Ri ght Upper Arm] Pulse Oximetry 94 94 96 Oxygen Delivery [place] thod Room Air Room Air Room Air 07/07/23 03:00 07/07/23 07:00 07/07/23 07:00 Temperature 97.8 F 97.8 F Pulse Rate [Pulse Oximeter] 76 74 74 Pulse Rate [Right Pulse Oximeter] Respiratory Rate 26 H 26 H 26 H Blood Pressure [Le ft Arm] 128/80 144/87 H Blood Pressure [Ri ght Upper Arm] Pulse Oximetry 96 96 Oxygen Delivery [place] thod Room Air Room Air 07/07/23 07:00 07/07/23 11:00 07/07/23 11:00 Temperature 98.1 F 98.1 F Pulse Rate [Pulse Oximeter] 107 H 104 H Pulse Rate [Right Pulse Oximeter] Respiratory Rate 26 H 26 H 26 H Blood Pressure [Le ft Arm] 126/93 H 126/93 H Blood Pressure [Ri ght Upper Arm] Pulse Oximetry 96 97 97 Oxygen Delivery Me thod Room Air Room Air Room Air ENT-CN: Result Labs Labs: Short CBC 07/06/23 07/07/23 Range/Units 16:29 06:45 WBC 9.66 5.92 (4.50-11.00) K/uL Hgb 14.2 14.7 (13.5-17.5) gm/dL Hct 42.2 44.2 (37.0-53.0) % Plt Count 421 412 (140-440) K/uL BMP 07/06/23 07/07/23 16:29 06:45 Sodium 137 137 Potassium 4.5 4.6 Chloride 108 103 Carbon Dioxide 18 L 26 BUN 13 13 Creatinine 0.6 0.6 Glucose 96 122 H Calcium 8.6 8.9 Assessment and Plan Assessment and plan (1) Supraglottic mass: Problem comment: - noted on 07/06/23 CT. ENT ([facility]) aware, plans to see 07/07 Status: Acute Plan Okay right supraglottic mass hopefully benign. Once he is over is COVID he should be seen by an ENT head neck surgeon.
--- NOTE | 2023-07-07 13:35 | PC.SOCIAL ---
Addendum entered by CHLOE Guzman 07/07/23 16:12: Discharge planning: pass worker spoke to pt on his cell phone this afternoon. Pt said he feels pretty rough from the COVID right now. pass worker introduced myself and stated that social workers were here for support if he had any questions, concerns, needed resources, etc. Pt was thankful for the call. Pt sated that he has a very supportive family, as well. Social work to follow-up as needed. Original Note: Discharge planning: pass worker attempted to call pt room for check-in, but there was no answer. pass worker will try again later this afternoon. Social work to follow-up as needed.
[2023-07-07] MEDS: IPRAT-ALBUT 0.5-2.5 MG/3 ML NEB 1 NEB IH ×2 (16:13→20:49)
--- NOTE | 2023-07-07 16:56 | P.IMPN_ITS ---
Progress Note: A&P Assessment and plan (1) COVID-19: Problem details: - high risk for complications given COPD and comorbidities - will treat with 3 day course of Remdesivir - given concern for concomitant COPD exacerbation, will also add nebs, steroids - supplemental oxygen if needed Status: Acute (2) Supraglottic mass: Problem details: - noted on 07/06/23 CT. ENT ([facility]) evaluated on July 07. Looks cystic. Recommend head and neck ET consult in the [facility]. Status: Acute (3) Mass of left lung: Problem details: - known, has PET scan scheduled 07/20/23 Status: Acute (4) Alcohol use: Problem details: Continues to have signs and symptoms suggestive of mild to moderate alcohol withdrawal. Continue CIWA and phenobarb as needed Status: Acute (5) Oral pharyngeal candidiasis: Problem details: Restart Diflucan Status: Acute (6) Cannabis abuse: Status: Acute (7) Generalized anxiety disorder: Problem details: - chronic, continue home doses of Lexapro, prn Ativan Status: Acute (8) Tobacco abuse: Problem details: - patch placed 07/06 Status: Acute (9) COPD (chronic obstructive pulmonary disease): Problem details: Continue prednisone and inhaled bronchodilators. Status: Acute Plan Continue in-hospital for treatment for COVID, COPD, alcohol withdrawal, other chronic medical problems. Time Spent With Patient Total time spent: Total time spent today is 60 minutes, 40 minutes in coordination of care and discussing with patient and other providers ongoing management of dyspnea, COPD, COVID, alcohol withdrawal Subjective Date Seen: 07/07/23 Interval history: 62-year-old male admitted to the hospital with worsening cough congestion and dyspnea. Patient has known COPD and reports chronic dyspnea and chronic cough. In the last few days prior to admission he is gotten quite a bit worse. On admission the hospital he was diagnosed with COVID infection. Patient was also noted to have a lung mass on previous chest CT and that is pending a PET scan scheduled for 2 weeks from now. Patient was also noted to have a soft tissue neck mass. This was evaluated by Dr. Vazquez who recommended he see a head and neck ENT for further evaluation and treatment. This was not felt to be an urgent problem. Patient also has a history of fairly heavy alcohol consumption. He had a little bit to drink yesterday morning prior to admission. He has been anxious and tremulous and dyspneic during the day today. These feelings all improved with some lorazepam and also phenobarb. Last week he was seen in clinic and prescribed fluconazole and nystatin for oral thrush. Chart notes that he is on prednisone 10 mg daily though patient is not aware of taking this Exam Narrative: Exam Narrative: He is alert and appears very anxious. He is tachypneic, possibly hyperventilating. Mild fine tremor in both hands. Respirations are relatively clear to auscultation. No wheezing rales or rhonchi. Fair air exchange in all lung way. Cardiovascular: S1, S2, regular rate and rhythm. Abdomen: Bowel sounds are active. Abdomen is soft without tenderness or mass. Extremities without edema. Const: Vital Signs, click to edit/add: Vital Signs - 24 hr 07/06/23 20:24 07/06/23 21:55 07/06/23 21:55 Temperature 97.5 F L 97.5 F L Pulse Rate [Pulse Oximeter] 88 88 Respiratory Rate 24 Blood Pressure [Le ft Arm] 143/95 H 143/95 H Pulse Oximetry 96 96 [facility] 07/06/23 23:00 07/06/23 23:00 07/06/23 23:00 Temperature 97.8 F Pulse Rate [Pulse Oximeter] 88 86 Respiratory Rate 28 H 28 H 28 H Blood Pressure [Le ft Arm] 121/73 Pulse Oximetry 94 94 Oxygen Delivery [facility] Room Air Room Air 07/07/23 00:00 07/07/23 03:00 07/07/23 03:00 Temperature 98.8 F 97.8 F 97.8 F Pulse Rate [Pulse Oximeter] 86 76 76 Respiratory Rate 26 H 26 H 26 H Blood Pressure [Le ft Arm] 121/73 128/80 128/80 Pulse Oximetry 94 96 96 [facility] Room Air 07/07/23 07:00 07/07/23 07:00 07/07/23 07:00 Temperature 97.8 F Pulse Rate [Pulse Oximeter] 74 74 Respiratory Rate 26 H 26 H 26 H Blood Pressure [Le ft Arm] 144/87 H Pulse Oximetry 96 96 [facility] Room Air 07/07/23 11:00 07/07/23 11:00 07/07/23 15:00 Temperature 98.1 F 98.1 F Pulse Rate [Pulse Oximeter] 107 H 104 H 89 Respiratory Rate 26 H 26 H 20 Blood Pressure [Le ft Arm] 126/93 H 126/93 H Pulse Oximetry 97 97 Oxygen Delivery Me thod Room Air Room Air 07/07/23 15:00 07/07/23 15:00 07/07/23 15:00 Temperature 97.8 F 97.8 F Pulse Rate [Pulse Oximeter] 89 89 Respiratory Rate 20 20 20 Blood Pressure [Le ft Arm] 128/88 128/88 Pulse Oximetry 96 97 97 Oxygen Delivery Me thod Room Air Room Air Room Air Documenting provider has reviewed patient's vital signs: yes Labs Labs: Laboratory Results - last 24 hr 07/06/23 07/07/23 16:29 06:45 WBC 5.92 RBC 4.90 Hgb 14.7 Hct 44.2 MCV 90 MCH 30 MCHC 33 RDW Coeff of Dylan 13.5 Plt Count 412 Neut % (Auto) 80.5 H Lymph % (Auto) 16.4 L [place] % (Auto) 2.7 Eos % (Auto) 0.0 Baso % (Auto) 0.2 Neut # (Auto) 4.80 Lymph # (Auto) 1.00 [place] # (Auto) 0.20 Eos # (Auto) 0.00 Baso # (Auto) 0.01 Abs Immat Gran (auto) 0.01 Imm/Tot Granulo (auto) 0.2 VBG pH 7.381 VBG pCO2 46 VBG pO2 25.9 VBG HCO3 27 Sodium 137 137 Potassium 4.5 4.6 Chloride 108 103 Carbon Dioxide 18 L 26 Anion Gap 11 8 BUN 13 13 Creatinine 0.6 0.6 Estimated Creat Clear 56.13 Estimated GFR 108 108 Glucose 96 122 H Calcium 8.6 8.9 Magnesium 2.0 NT-Pro-B Natriuret Pep 38 SARS-CoV-2 (PCR) POSITIVE SARS-CoV-2 A Influenza Type A (PCR) Negative PCR FLU A Influenza Type B (PCR) Negative PCR FLU B RSV (PCR) Negative PCR RSV
--- NOTE | 2023-07-07 19:29 | PC.NURSE ---
Nursing Care Hours: [id number] Terrapin Fisher took over pt for last two hours of shift. Was unable to get into room until 1845 to recheck ciwa but pt asleep, resting comfortably. Pt ate his dinner meal and is independent in room.
[2023-07-07] MEDS: NICOTINE 21 MG PATCH 1 PATCH TRANSDERMA (19:52)
[2023-07-07] MEDS: ENOXAPARIN 40 MG/0.4 ML INJ SUBCUT (20:39)
[2023-07-07] MEDS: BUDESONIDE 0.5 MG/2ML NEB NEB (20:40)
[2023-07-08] MEDS: guaiFENesin 100 MG/ML CUP PO ×2 (00:35→04:54)
[2023-07-08 03:15] VITALS: BP 126/84; PULSE 92; RESP 20; TEMP 36.6; O2SAT 91
[2023-07-08 03:22] VITALS: BP 126/84; PULSE 92; RESP 20; TEMP 36.6; O2SAT 91
--- NOTE | 2023-07-08 06:49 | PC.NURSE ---
End of shift note [id number]: Pt noted to be alert & oriented x 4 and reported, ?I?ve slept the best I?ve slept in three weeks? after receiving po Ativan yesterday afternoon. VSS and pt has been afebrile. Pt reports mostly nonproductive cough though states he does have productive cough with clear phlegm at times. Last BM 07/07/23 and pt is continent of bladder. He ambulates independently and refused supper last evening despite encouragement and reapproaching. Pt requested PRN cough syrup for sore throat and coughing throughout the shift. New nicotine patch applied to R shoulder last evening after previous patch had been removed from L shoulder. CIWA scores of 0 with pt denying feeling anxious, nauseous, headache, itching, numbness and tingling throughout the shift. He is aware he has order for PRN Ativan po in place for anxiety or nicotine cravings. Pt received IV dose of Remdesivir per order.
[2023-07-08 07:00] VITALS: BP 141/96; PULSE 84; RESP 20; TEMP 36.5; O2SAT 96
[2023-07-08] MEDS: predniSONE 20 MG TABLET 40 MG PO (08:25)
[2023-07-08] MEDS: FOLIC ACID 1 MG TABLET PO (08:31)
[2023-07-08] MEDS: OMEPRAZOLE 20 MG CAPSULE DR PO (08:31)
[2023-07-08] MEDS: THIAMINE 100 MG TABLET PO (08:31)
[2023-07-08] MEDS: FLUCONAZOLE 100 MG TABLET PO (08:31)
[2023-07-08] MEDS: ESCITALOPRAM 10 MG TABLET 20 MG PO (08:31)
[2023-07-08] MEDS: LORazepam 0.5 MG TABLET 1 MG PO (08:32)
[2023-07-08] MEDS: BUDESONIDE 0.5 MG/2ML NEB NEB (08:32)
[2023-07-08] MEDS: SODIUM CHLORIDE 0.9 % (FLUSH) 10 ML SYRINGE 5 ML IVF (08:32)
[2023-07-08] MEDS: IPRAT-ALBUT 0.5-2.5 MG/3 ML NEB 1 NEB IH (08:32)
[2023-07-08] MEDS: PHENobarbitaL 32.4 MG TABLET 162 MG PO (11:39)
--- NOTE | 2023-07-08 13:49 | P.DS_ITS ---
DS: Providers Provider Date Seen: 07/08/23 Date of admission: 07/06/23 20:21 Primary care physician: Adam Curiel MD Admitting Clinician: Ayanna Mccord MD Attending Physician on discharge: Apolinar Morgan MD Date of Discharge: 07/08/23 DS: Diagnosis Discharge Diagnosis (1) COVID-19: Status: Acute Problem details: Treated with 3 days of Remdesivir. No hypoxia. Intermittently tachypneic, anxiety possibly contributing (2) Supraglottic mass: Status: Acute Problem details: - noted on 07/06/23 CT. ENT ([facility]) evaluated on July 07. Looks cystic. Recommend head and neck ET consult in the [facility]. (3) Mass of left lung: Status: Acute Problem details: - known, has PET scan scheduled 07/20/23 (4) Alcohol use: Status: Acute Problem details: Continues to have signs and symptoms suggestive of mild to moderate alcohol withdrawal. Continue CIWA and phenobarb as needed. (5) Oral pharyngeal candidiasis: Status: Acute Problem details: Restart Diflucan (6) Cannabis abuse: Status: Acute (7) Generalized anxiety disorder: Status: Acute Problem details: - chronic, continue home doses of Lexapro, prn Ativan. (8) Tobacco abuse: Status: Acute Problem details: - patch placed 07/06 his. Continue outpatient nicotine patch (9) COPD (chronic obstructive pulmonary disease): Status: Acute Problem details: Continue prednisone and inhaled bronchodilators. DS: Summary Hospital Course Hospital Course: 62-year-old male admitted to the hospital with acute on chronic cough and dyspnea. Time of admission he was found to have COVID infection. He had a chest CT which showed no pulmonary embolism or pneumonia. Findings consistent with emphysema and also a endobronchial lesion in his left hilum. This is previously known about and he has a PET scan to evaluate scheduled for July 20. He was also noted to have a lesion in his supraglottic larynx. This was evaluated by Dr. Vazquez who said this lesion looks cystic but recommended he see a head and neck ENT in the [facility] for evaluation and treatment. He did have mild alcohol withdrawal symptoms during his hospital stay. These are treated with phenobarbital and lorazepam with fairly good affect. Status at Discharge Functional status at discharge: independent ambulation Overall status at discharge: patient is progressing back to baseline Time Spent with Patient Time attestation: Total time spent providing and/or coordinating discharge services: Time spent: Greater than 30 minutes Exam Narrative: Exam Narrative: He is alert and appears in no distress. Mildly anxious today. No tremor. Respirations are relatively clear to auscultation. He has diminished breath sounds but no wheezing rales or rhonchi. Cardiovascular: S1, S2, regular rhythm. Abdomen is soft without tenderness or mass. Const: Vital Signs, click to edit/add: Vital Signs - 24 hr 07/07/23 15:00 07/07/23 15:00 07/07/23 15:00 Temperature 97.8 F Pulse Rate [Pulse Oximeter] 89 89 Respiratory Rate 20 20 20 Blood Pressure [Le ft Arm] 128/88 Pulse Oximetry 96 97 Oxygen Delivery Me thod Room Air Room Air 07/07/23 15:00 07/07/23 19:48 07/07/23 19:49 Temperature 97.8 F 97.6 F 97.6 F Pulse Rate [Pulse Oximeter] 89 88 88 Respiratory Rate 20 18 18 Blood Pressure [Le ft Arm] 128/88 123/81 123/81 Pulse Oximetry 97 93 93 Oxygen Delivery Me thod Room Air Room Air Room Air 07/07/23 23:00 07/07/23 23:34 07/07/23 23:36 Temperature 97.9 F Pulse Rate [Pulse Oximeter] 94 94 Respiratory Rate 20 20 20 Blood Pressure [Le ft Arm] 110/70 Pulse Oximetry 96 96 Oxygen Delivery Me thod Room Air Room Air 07/07/23 23:37 07/08/23 03:15 07/08/23 03:22 Temperature 97.9 F 97.9 F 97.9 F Pulse Rate [Pulse Oximeter] 94 92 92 Respiratory Rate 20 20 20 Blood Pressure [Le ft Arm] 110/70 126/84 126/84 Pulse Oximetry 96 91 91 Oxygen Delivery Me thod Room Air Room Air Room Air 07/08/23 07:00 07/08/23 07:00 07/08/23 07:00 Temperature 97.7 F Pulse Rate [Pulse Oximeter] 84 84 Respiratory Rate 20 20 20 Blood Pressure [Le ft Arm] 141/96 H Pulse Oximetry 96 96 Oxygen Delivery Me thod Room Air Room Air Documenting provider has reviewed patient's vital signs: yes DS: Data Imaging CT scan - chest: Radiologist's impression: Indication: Dyspnea, known malignancy, history of right-sided lung symptoms Technique: Volumetric multidetector CT images of the chest were obtained after the administration of IV contrast. 95 cc Isovue 370 low osmolar intravenous contrast Comparison: CT chest abdomen and pelvis April 19, 2023 Findings: The thoracic inlet and thyroid gland are unremarkable. The thoracic aorta is nonaneurysmal. There is no central filling defect to suggest pulmonary embolism. There are enlarged mediastinal and hilar lymph nodes as well as subcarinal lymph nodes similar to previous exam. There is demonstration of marked bronchial thickening and opacification of the left lower lobe subsegmental bronchi. There is mild upper lobe central bronchial thickening. There is moderate to severe centrilobular and paraseptal emphysematous change. There is interval development of left basilar atelectasis and consolidation with likely obstructing endobronchial lesion at the left hilum measuring 3.3 x 2.4 centimeters. There is no evidence of pulmonary mass or suspicious pulmonary nodule. The partially visualized upper abdomen demonstrates moderate stool within the colon. The thoracic vertebral body heights are grossly maintained with straightening of the normal thoracic kyphosis. There is no significant spondylolisthesis or displaced fracture. Impression: Moderate to severe emphysematous changes of the bilateral hemithoraces with demonstration of likely left inferior hilar mass and/or endobronchial obstructing lesion measuring 2.4 x 3.3 centimeters with moderate atelectasis and consolidation in the peripheral left lower lobe. There are enlarged mediastinal and hilar lymph nodes again seen. No evidence of pulmonary embolus. CT- Other: Radiologist's impression: CT scan soft tissue neck: INDICATION: Dyspnea. TECHNIQUE: CT of the neck soft tissues performed with IV contrast. Contrast: 95 cc Isovue 370. COMPARISON: None available at this institution. FINDINGS: There is effacement of the right piriform sinus. Suggestion of a submucosal lesion in the right false cord/supraglottic region measuring up to 1.2 x 1.6 cm (TR X AP) (series 3, image 57). The nasopharynx, oropharynx and hypopharynx appear unremarkable. The parotid and submandibular glands appear unremarkable. The thyroid gland is normal. There is a 1.8 cm central hypodense lymph node noted right supraclavicular/level 5. Scattered atherosclerotic disease. The visualized intracranial components appear grossly intact. Visualized orbits and contents appear unremarkable. The paranasal sinuses are clear as visualized. Severe emphysema. IMPRESSION: 1. Suggestion of a submucosal lesion within the right supraglottic larynx/false cord region. Effacement of the right piriform sinus. Direct visualization is recommended. 2. Right supraclavicular/level 5 enlarged lymph node with central hypodensity worrisome for necrosis. This could represent a metastatic lymph node. Tissue sampling recommended if a primary source is not identified. Discharge Plan Discharge Disposition: Home, Self-Care Date of Admission: 07/06/23 20:21 Attending Provider on Discharge: Boo Morgan Consulting Providers: Anshul Vazquez Primary Care Provider: Adam Curiel Condition: Improved Anticipated Discharge Date/Time: 07/08/23 11:30 Discharge Medications: New nicotine 21 mg/24 hr patch 24 hour 1 patch transdermal DAILY Qty: 28 0RF Continued escitalopram oxalate 20 mg tablet 20 mg PO DAILY fluticasone propionate [Flonase Allergy Relief] 50 mcg/actuation spray,suspension 2 spray intranasal QDAY Qty: 16 5RF Rx Instructions: administer into each nostril albuterol sulfate 2.5 mg /3 mL (0.083 %) solution for nebulization 2.5 mg continuous nebulization Q6H PRN Patient Comments: [NO ORIGINAL SIG] (DME) nebulizer and compressor [[employer] Essence] Device See Rx Instructions .ROUTE DAILY Qty: 1 Rx Instructions: As directed lorazepam [Ativan] 1 mg tablet 1 mg PO BID PRN (Reason: anxiety) Qty: 60 1RF budesonide [Pulmicort] 0.5 mg/2 mL suspension for nebulization 0.5 mg inhalation BID Qty: 120 5RF ipratropium-albuterol 0.5 mg-3 mg(2.5 mg base)/3 mL solution for nebulization 3 ml inhalation TID Qty: 270 5RF omeprazole 20 mg capsule,delayed release(DR/EC) 20 mg PO QDAY Qty: 30 5RF fluconazole 100 mg tablet 100 mg PO QDAY Qty: 14 0RF nystatin 100,000 unit/mL suspension 5 ml PO TID Qty: 473 0RF Rx Instructions: swish and swallow albuterol sulfate 90 mcg/actuation HFA aerosol inhaler 2 puff inhalation Q6H PRN (Reason: shortness of breath or wheezing) Qty: 8.5 2RF prednisone 10 mg tablet 10 mg PO QDAY Qty: 30 0RF Discharge Orders: Discharge Order (Routine); Ordered 07/08/23 Ordered By: Boo Morgan Patient Education: Nicotine (Absorbed through the skin), How to Stop Smoking (DC), Cigarette Smoking and Your Health (GEN), Abuse of Alcohol (DC), Cannabis Use Disorder (DC), Alcohol Withdrawal (DC), Anxiety (ED), Alcohol Dependence (DC), COVID-19 (Coronavirus Disease 2019) (DC), COVID-19 and Chronic Health Conditions (DC), COVID-19: Slow the Coronavirus Spread (DC) Additional Instructions: Dr. Vazquez (gleason gear generator) recommends you see an ear nose and throat/head and neck specialist in the [facility] for the mass your throat. No driving for 1 day due to medicines day we have given you. Talk to your doctor about getting help to stop smoking and to reduce alcohol consumption. Activity Level: Activity as Tolerated Discharge Diet: Regular Follow Up Appointments: Adam Curiel MD [Primary Care Provider] - 07/17/23 1:15 pm ([facility] for Hospital follow-up. ) Forms: [employer] Info Instructions
--- NOTE | 2023-07-08 14:38 | PC.NURSE ---
Discharge: Patient discharged at 1345 to home accompanied by sister. Patient alert and oriented. CIWA score 0. PRN ativan administered x1 for smoking cessation and anxiety. Patient on RA, tolerating a reg. diet. Patient's IV removed intact. Patient signed belongings sheet, and discharge instructions. Patient and sister verbalized understanding of discharge instructions.
== END 2023-07-08 13:45 | disposition home or self-care (01) | DRG 137 ==
LOC: ED 16:25 → MEDSURG 19:39
PROVIDERS: Admitting Provider Family Medicine; Emergency Provider Family Medicine; PCP Family Medicine; Visit Provider Family Medicine
DX: U07.1 COVID-19 (principal); J44.0 Chronic obstructive pulmonary disease with (acute) lower respiratory infection; J43.9 Emphysema, unspecified; J98.11 Atelectasis; J98.4 Other disorders of lung; R91.8 Other nonspecific abnormal finding of lung field; J38.7 Other diseases of larynx; F10.239 Alcohol dependence with withdrawal, unspecified; B37.0 Candidal stomatitis; F33.9 Major depressive disorder, recurrent, unspecified; F41.1 Generalized anxiety disorder; K21.9 Gastro-esophageal reflux disease without esophagitis; F19.11 Other psychoactive substance abuse, in remission; F12.10 Cannabis abuse, uncomplicated; G89.29 Other chronic pain; Z90.2 Acquired absence of lung [part of]; F17.210 Nicotine dependence, cigarettes, uncomplicated; Z68.1 Body mass index [BMI] 19.9 or less, adult; R59.0 Localized enlarged lymph nodes
CPT/HCPCS: 36415; 70491; 71275; 80048; 82803; 83735; 83880; 85025; 87631; 94640; 99285; A9270; J1100; J1650; J2560; J7030; J7050; J7512; J7626; Q9967; S4990